=== PATIENT | male | born 1975 | race African-American/Black ===

== ENCOUNTER 2019-01-07 12:09 | Emergency (ER) | payer OTHER ==
[~2019-01-07] VITALS: Ht 190.5 cm; Wt 117.9 kg
[2019-01-07 12:22] VITALS: BP 157/97
--- NOTE | 2019-01-07 13:10 | NUR ---
PT AMBULATED TO ER BED 02
--- NOTE | 2019-01-07 13:10 | NUR ---
BIB SELF. AAO X4 C/O RUQ ABDOMINAL PAIN, DIARRHEA X 3 WEEKS. PER PT, HE WAS REFERRED BY PRIMARY CARE PHYSICIAN TO ER FOR CT OF ABDOMEN. PT STATES THAT HIS ABDOMINAL PAIN STARTED AFTER EATING AT AN UNKNOWN [employer]. PT IS TAKING CASTOR OIL EVERYDAY FOR BOWEL MOVEMENT. PT DENIES N/V, DIZZINESS, SOB. HOB UP. BED SIDE RAILS UP X1. ON LOW BED POSITION ,LOCKED. ER MADE AWARE OF PT STATUS.
--- NOTE | 2019-01-07 13:27 | NUR ---
DR LICONA AT BEDSIDE FOR PT EVALUATION
--- NOTE | 2019-01-07 14:25 | NUR ---
PT REFUSED FOR BLOOD WORK TO BE DONE. PT STATES "THEY ALWAYS TAKE MY BLOOD AND IT'S THE SAME THING EVERY TIME". 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 PT REFUSED AND VERBALIZED UNDERSTANDING.
[2019-01-07 14:33] LABS: APPEARANCE,URINE CLEAR (CLEAR); BILIRUBIN,URINE 1+ (NEGATIVE); BLOOD, URINE NEGATIVE (NEGATIVE); COLOR,URINE YELLOW (YELLOW); LEUKOCYTE ESTERASE ,URINE NEGATIVE (NEGATIVE); NITRITE, URINE NEGATIVE (NEGATIVE); UGLUCOSE NEGATIVE (NEGATIVE)
--- NOTE | 2019-01-07 15:00 | NUR ---
PT REFUSED CT WITH CONTRAST. NOTIFIED.
--- NOTE | 2019-01-07 15:36 | NUR ---
ACCOUNT COLLECTOR AT BEDSIDE
[2019-01-07 17:25] VITALS: BP 154/90
--- NOTE | 2019-01-07 17:25 | NUR ---
Patient discharged with v/s stable. Written and verbal after care instructions given and explained. Patient verbalized understanding. Ambulatory with steady gait. All questions addressed prior to discharge. Advised to follow up with PMD.
== END 2019-01-07 17:25 | disposition home or self-care (01) ==
LOC: MED 12:09
DX: R10.11 Right upper quadrant pain (principal); R10.13 Epigastric pain; J45.909 Unspecified asthma, uncomplicated; E11.9 Type 2 diabetes mellitus without complications; I10 Essential (primary) hypertension
CPT/HCPCS: 76705; 81003; 99284; Q0092

== ENCOUNTER 2021-05-04 23:12 | Emergency (ER) | payer OTHER ==
[~2021-05-04] VITALS: Ht 190.5 cm; Wt 116.3 kg
[2021-05-04 23:27] VITALS: BP 147/90
--- NOTE | 2021-05-04 23:30 | NUR ---
TO LOBBY A/W BED AMBULATORY
[2021-05-05 02:07] LABS: BASOPHILS # (AUTO) 0.1 K/uL (0.00-0.22); BASOPHILS % (AUTO) 0.8 % (0.0-2.0); EOSINOPHILS # (AUTO) 0.1 K/uL (0-0.4); EOSINOPHILS % (AUTO) 1.5 % (0.0-4.0); HEMATOCRIT 39.2 % (36-52); HEMOGLOBIN 12.8 g/dL (12.0-18.0); LYMPHOCYTES # (AUTO) 2.1 K/uL (2.0-11.5); LYMPHOCYTES % (AUTO) 25.1 % (20.5-51.1); MEAN CORPUSCULAR HEMOGLOBIN 31 pg (27-31); MEAN CORPUSCULAR HGB CONC 33 g/dL (33-37); MEAN CORPUSCULAR VOLUME 93.2 fL (80-94); MONOCYTES # (AUTO) 0.4 K/uL (0.8-1.0); MONOCYTES % (AUTO) 5.1 % (1.7-9.3); NEUTROPHILS # (AUTO) 5.6 K/uL (1.8-7.7); NEUTROPHILS % (AUTO) 67.5 % (42.2-75.2); PLATELET COUNT (AUTO) 317 K/uL (140-450); RED BLOOD CELL COUNT(AUTO) 4.21 MIL/uL (4.20-6.10); RED CELL DISTRIBUTION WIDTH 15.7 % (11.6-13.7); WHITE BLOOD COUNT (AUTO) 8.2 K/uL (4.8-10.8)
[2021-05-05 02:31] LABS: ANION GAP 15.7 (8-16); CREATININE 1.7 mg/dL (0.6-1.3); POTASSIUM 3.7 mmol/L (3.5-5.1); TOTAL BILIRUBIN 2.6 mg/dL (0.0-1.0)
--- NOTE | 2021-05-05 02:37 | NUR ---
45 yo m bib self with c/c of 8/10 chest pain that comes and goes x2days, feels like pressure and fluids in his lungs and stomach per pt. pt stated he has felt weak, +n, -v. pt stated he had to sit up through the night to be able to breath. swelling on LE present, l leg is more swollen than r. pt stated he had been seen the er before for this same problem, he was given lasix and said he felt better, stated left leg swelling d Addendum: 05/05/21 at 0243 by [facility] 45 yo m bib self with c/c of 8/10 chest pain nonrad that comes and goes x2days, feels like pressure and fluids in his lungs and stomach per pt. pt stated he has felt weak, +n, -v. pt stated he had to sit up through the night to be able to breath. swelling on LE present, l leg is more swollen than r. pt stated he had been seen the er before for this same problem, he was given lasix and said he felt better, stated right leg swelling did not go away. pt said he has been urinating dark and less lately. 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 hx: htn, dm2 rx: atenolol, metformin- noncomplaint, stated he only takes it if he needs it.
[2021-05-05] MEDS ORDERED: FUROSEMIDE 40 MG/4 ML VIAL IVP ONE (02:55)
[2021-05-05] MEDS ORDERED: LABETALOL 100 MG/20 ML VIAL IVP ONE (02:55)
[2021-05-05] MEDS ORDERED: ASPIRIN 81 MG TAB.CHEW PO ONE (02:55)
[2021-05-05 03:04] LABS: PROTHROMBIN TIME 14.4 secs (10.8-13.4)
[2021-05-05] MEDS ORDERED: ALBUTEROL HFA MDI 90 MCG/ACTUATION 8 GM INH ONE (03:25)
--- NOTE | 2021-05-05 03:40 | NUR ---
EXPLAINED TO PT THE IMPORTANCE OF BEING ADMITTED FOR OBSERVATION, PT STATED WE ARE PLAYING GAMES WITH HIM AND THAT I DONT KNOW WHERE HES FROM AND WHO HE IS AFFILIATED WITH, TOLD PT THAT I ONLY CARE ABOUT HIS WELL BEING I AM NOT CONCERNED WITH HIS AFFLIATION. PT SAID HES NOT ABOUT TO SIT UP IN HERE. ERMD MADE AWARE.
--- NOTE | 2021-05-05 04:10 | NUR ---
EMPTIED URINAL 2XS- OUTPUT 750ML
[2021-05-05] MEDS ORDERED: NITROGLYCERIN 2% 1 GM PKT TP ONE (04:35)
[2021-05-05 05:00] VITALS: BP 164/114
--- NOTE | 2021-05-05 05:00 | NUR ---
Patient does not wish to proceed with medical care recommended by . Patient given information related to possible complications, up to and including , which could occur as a result of leaving hospital at this time. Patient verbalizes understanding of risks involved leaving against medical advice. Patient has signed AMA form.
[2021-05-05] MEDS ORDERED: FURO-570 PO (05:04)
--- NOTE | 2021-05-05 05:15 | NUR ---
Nigel mcmillan in [facility] - 05/05/21 at 0523 by MCAMLJ PATIENT REFUSED ALBUTEROL MDI INHALER
--- NOTE | 2021-05-05 05:24 | NUR ---
0500 pt refused mdi inhaler
== END 2021-05-05 05:00 | disposition left against medical advice (07) ==
LOC: MED 23:12
DX: R77.8 Other specified abnormalities of plasma proteins (principal); Z20.822 Contact with and (suspected) exposure to COVID-19; R07.9 Chest pain, unspecified; I11.0 Hypertensive heart disease with heart failure; I50.9 Heart failure, unspecified; N17.9 Acute kidney failure, unspecified; E11.9 Type 2 diabetes mellitus without complications; J45.909 Unspecified asthma, uncomplicated; Z79.899 Other long term (current) drug therapy
CPT/HCPCS: 36415; 71045; 80053; 83880; 84484; 85025; 85379; 85610; 85730; 87426; 93005; 96374; 99285; J1940; J3490